=== PATIENT | male | born 1980 | race Two or more races ===

== ENCOUNTER 2017-01-20 | Emergency (ER) | payer SELFPAY ==
[~2017-01-20] VITALS: Ht 170.2 cm; Wt 78.9 kg
[2017-01-20 00:10] VITALS: BP 121/59
[2017-01-20] MEDS ORDERED: PRED50TA PO (00:14)
--- NOTE | 2017-01-20 00:14 | PHYS DOC ---
Adult General Chief Complaint Chief Complaint: ITCHING HPI HPI Patient is a 36 year old male presenting to the emergency department for evaluation of an itchy rash that has been present for the past 3-4 days and is coming and going and is worse in the heat. He denies any new soaps detergents or medications. The only new exposure that he can think of is that he touched some poison brenda. Review of Systems Review of Systems Constitutional: Denies fever or chills [] Integument: + rash, skin lesions [] Physical Exam Physical Exam Constitutional: Well developed, well nourished, no acute distress, non-toxic appearance. [] HENT: Normocephalic, atraumatic, bilateral external ears normal, oropharynx moist, no oral exudates, nose normal. [] Eyes: PERRLA, EOMI, conjunctiva normal, no discharge. [] Cardiovascular:Heart rate regular rhythm, no murmur [] Lungs & Thorax: Bilateral breath sounds clear to auscultation [] Abdomen: Bowel sounds normal, soft, no tenderness, no masses, no pulsatile masses. [] Skin: Slightly raised red rash on his right thigh. Slight rash noted to right forearm and right lower back. EKG EKG [] Radiology/Procedures Radiology/Procedures [] Course & Med Decision Making Course & Med Decision Making Patient with mild allergic reaction to something or could just be a bug bite. It does not appear consistent with poison brenda to me that he is insistent that he touched poison brenda so I will go ahead and treat him with antihistamine and a 10 day course of steroids. Follow with his primary care provider later this week to ensure improvement and come back to the ER sooner with any new or worsening symptoms. Dragon Disclaimer Dragon Disclaimer This electronic medical record was generated, in whole or in part, using a voice recognition dictation system. Departure Departure Impression: Primary Impression: Rash and nonspecific skin eruption Disposition: 01 HOME, SELF-CARE Condition: GOOD Patient Instructions: Poison Brenda Additional Instructions: TAKE 25-50 MG EVERY 4-6 HOURS FOR THE ITCHING. YOU CAN PUT CALAMINE LOTION ON THE RASH. Scripts Prednisone (PREDNISONE) 50 Mg Tablet 1 TAB PO DAILY, #6 TAB Take 1 tab for 4 days and a half tab for 4 days Prov: DORIAN GARVEY DO 01/20/17 DORIAN GARVEY DO Jan 20, 2017:14
[2017-01-20] MEDS ORDERED: diphenhydrAMINE HCL 25 MG CAPSULE PO ONE (00:15)
== END 2017-01-20 00:20 | disposition home or self-care (01) ==
LOC: ER
DX: R21 Rash and other nonspecific skin eruption (principal)
CPT/HCPCS: 99283; Q0163

== ENCOUNTER 2017-02-24 09:21 | Emergency (ER) | payer SELFPAY ==
[~2017-02-24] VITALS: Ht 170.2 cm; Wt 79.4 kg
[~2017-02-24 09:21] MED LIST: PRED50TA PO
[2017-02-24 09:30] VITALS: BP 114/58
[2017-02-24] MEDS ORDERED: TRIA15OI TP (09:51)
--- NOTE | 2017-02-24 09:51 | PHYS DOC ---
Past Medical History Past Medical History: No Pertinent History Past Surgical History: No Surgical History Additional Past Surgical Histo: Abdominal SX to get glass out Alcohol Use: None Drug Use: None Adult General Chief Complaint Chief Complaint: SKIN PROBLEM HPI HPI Patient is a 36 year old male presents to the emergency department with a history of rash on lower legs and feet. Patient was seen her on January 22 and placed on prednisone. Patient states he did not finish the complete medication regimen, he missed 2 dose. Patient denies SOA, he states he continues to have the rash on his feet. and arm. He denies drainage or discharge from the sites. Review of Systems Review of Systems Constitutional: Denies fever or chills [] Eyes: Denies change in visual acuity, redness, or eye pain [] HENT: Denies nasal congestion or sore throat [] Respiratory: Denies cough or shortness of breath [] Cardiovascular: No additional information not addressed in HPI [] GI: Denies abdominal pain, nausea, vomiting, bloody stools or diarrhea [] : Denies dysuria or hematuria [] Musculoskeletal: Denies back pain or joint pain [] Integument: rash denies skin lesions [] Neurologic: Denies headache, focal weakness or sensory changes [] Endocrine: Denies polyuria or polydipsia [] Allergies Allergies Allergies Coded Allergies Type Severity Reaction Last Updated Verified No Known Drug Allergies 01/20/17 No Physical Exam Physical Exam Constitutional: Well developed, well nourished, no acute distress, non-toxic appearance. [] HENT: Normocephalic, atraumatic, bilateral external ears normal, oropharynx moist, no oral exudates, nose normal. [] Eyes: PERRLA, EOMI, conjunctiva normal, no discharge. [] Neck: Normal range of motion, no tenderness, supple, no stridor. [] Cardiovascular:Heart rate regular rhythm, no murmur [] Lungs & Thorax: Bilateral breath sounds clear to auscultation [] Skin: Warm, dry, no erythema, no rash. I do not appreciate a rash on his feet or arm. Skin without red rash, or any raised areas. Back: No tenderness Extremities: No tenderness, no cyanosis, no clubbing, ROM intact, no edema. [] Neurologic: Alert and oriented X 3, normal motor function, normal sensory function, no focal deficits noted. [] Psychologic: Affect normal, judgement normal, mood normal. [] Current Patient Data Vital Signs Vital Signs Date Time Temp Pulse Resp B/P (MAP) Pulse Ox O2 Delivery O2 Flow Rate FiO2 02/24/17 09:30 97.6 66 18 114/58 (76) Room Air 98.0 97.6 EKG EKG [] Radiology/Procedures Radiology/Procedures [] Course & Med Decision Making Course & Med Decision Making Pertinent Labs and Imaging studies reviewed. (See chart for details) Patient will be discharged home in stable condition. Signs and symptoms to return to the emergency department has been provided. Patient will be recommended to use cream as prescribed. Signs and symptoms to return to the emergency department as needed. Followup recommendations have been provided. Patient agrees with discharge instructions, treatment regimen and followup recommendations. [] Dragon Disclaimer Dragon Disclaimer This electronic medical record was generated, in whole or in part, using a voice recognition dictation system. Departure Departure Impression: Primary Impression: Rash Disposition: HOME, SELF-CARE Condition: STABLE Referrals: NO PCP (PCP) Patient Instructions: Rash, [id number] Additional Instructions: Activity as tolerated Medications as prescribed Keep the areas clean dry and cool Followup with your primary care provider in 3-5 days Scripts Triamcinolone Acetonide (TRIAMCINOLONE ACETONIDE 0.1% OINT) 15 Gm Oint...g. 1 ENRIQUE TP BID for WOUND CARE, #1 TUBE MIX WITH EUCERIN DIRECTED BY PHYSICIAN Prov: ZAIN CHAU APRN 02/24/17 ZAIN CHAU APRN Feb 24, 2017 09:51
== END 2017-02-24 10:05 | disposition home or self-care (01) ==
LOC: ER 09:21
DX: R21 Rash and other nonspecific skin eruption (principal)
CPT/HCPCS: 99283

== ENCOUNTER 2018-06-07 09:49 | Emergency (ER) | payer SELFPAY ==
[~2018-06-07] VITALS: Ht 172.7 cm; Wt 79.4 kg
[~2018-06-07 09:49] MED LIST changes: +TRIA15OI TP
[2018-06-07 09:50] VITALS: BP 120/71
[2018-06-07] MEDS ORDERED: AMOX875T PO (10:11)
--- NOTE | 2018-06-07 10:12 | PHYS DOC ---
Past Medical History Past Medical History: No Pertinent History Past Surgical History: No Surgical History Additional Past Surgical Histo: Abdominal SX to get glass out Alcohol Use: None Drug Use: None Adult General Chief Complaint Chief Complaint: EARACHE/EAR PAIN [facility] HPI Patient is a 37 year old male who presents with left ear pain and fullness and sinus congestion x 3 days. Review of Systems Review of Systems Constitutional: Denies fever or chills [] Eyes: Denies change in visual acuity, redness, or eye pain [] HENT: nasal congestion. Denies sore throat. Left ear pain, congestion [] Respiratory: Denies cough or shortness of breath [] Cardiovascular: No additional information not addressed in HPI [] GI: Denies abdominal pain, nausea, vomiting, bloody stools or diarrhea [] : Denies dysuria or hematuria [] Musculoskeletal: Denies back pain or joint pain [] Integument: Denies rash or skin lesions [] Neurologic: Denies headache, focal weakness or sensory changes [] Endocrine: Denies polyuria or polydipsia [] All other systems were reviewed and found to be within normal limits, except as documented in this note. Allergies Allergies Allergies Coded Allergies Type Severity Reaction Last Updated Verified No Known Drug Allergies 01/20/17 No Physical Exam Physical Exam Constitutional: Well developed, well nourished, no acute distress, non-toxic appearance. [] HENT: Normocephalic, atraumatic, bilateral external ears normal, oropharynx moist, no oral exudates, nose normal. Left ear tympanic is purulent fluid filled and reddened. [] Eyes: PERRLA, EOMI, conjunctiva normal, no discharge. [] Neck: Normal range of motion, no tenderness, supple, no stridor. [] Cardiovascular:Heart rate regular rhythm, no murmur [] Lungs & Thorax: Bilateral breath sounds clear to auscultation [] Abdomen: Bowel sounds normal, soft, no tenderness, no masses, no pulsatile masses. [] Skin: Warm, dry, no erythema, no rash. [] Back: No tenderness, no CVA tenderness. [] Extremities: No tenderness, no cyanosis, no clubbing, ROM intact, no edema. [] Neurologic: Alert and oriented X 3, normal motor function, normal sensory function, no focal deficits noted. [] Psychologic: Affect normal, judgement normal, mood normal. [] EKG EKG [] Radiology/Procedures Radiology/Procedures [] Course & Med Decision Making Course & Med Decision Making Patient is a 37 year old male who presents with left ear pain and fullness and sinus congestion x 3 days. Return oriented. Skin pink warm and dry. Afebrile. Vital signs within normal limits. Patient's right ear tympanic is pink and left ear tympanic is purulent fluid filled and reddened. The ear is also tender during examination. Patient rates his discomfort at a 4/10. Throat is pink and without exudates. Patient does have some clear sinus drainage. Patient denies coughing or coughing up any mucus. He denies any shortness of breath or chest pain. No foreign body seen in either ear. Denies any nausea vomiting diarrhea. Patient states he has not been taking any [id number] medications. Patient is told to take Benadryl every 6 hours and to take the antibiotic as prescribed. Patient is told he can follow-up with a primary care provider if needed. Patient is also given a dose of dexamethasone in the ED. Dragon Disclaimer Dragon Disclaimer This electronic medical record was generated, in whole or in part, using a voice recognition dictation system. Departure Departure Impression: Primary Impression: Otitis media Disposition: 01 HOME, SELF-CARE Condition: STABLE Referrals: NO PCP (PCP) Patient Instructions: Otitis Media, Adult Additional Instructions: FOLLOW UP WITH A PRIMARY CARE PROVIDER. TAKE 1 BENADRYL EVERY 6 HOURS. TAKE MEDICATIONS PRESCRIBED. Scripts Amoxicillin (AMOXICILLIN) 875 Mg Tablet 875 MG PO TID for 5 Days, #15 TAB 0 Refills Prov: ZAIN BUTCHER WELDER [employer]EN ARC 06/07/18 Problem Qualifiers Primary Impression: Otitis media Otitis media type: unspecified Chronicity: acute Qualified Codes: H66.90 - Otitis media, unspecified, unspecified ear ZAIN BUTCHER [employer]DER [employer]C Jun 07, 2018 10:12
[2018-06-07] MEDS ORDERED: DEXAMETHASONE 4 MG TABLET PO ONE (10:15)
== END 2018-06-07 10:25 | disposition home or self-care (01) ==
LOC: ER 09:49
DX: H66.91 Otitis media, unspecified, right ear (principal); R09.81 Nasal congestion
CPT/HCPCS: 99283; J8540

== ENCOUNTER 2021-05-07 16:36 | Emergency (ER) | payer SELFPAY ==
[~2021-05-07] VITALS: Ht 170.2 cm; Wt 79.0 kg
[~2021-05-07 16:36] MED LIST changes: +AMOX875T PO
[2021-05-07 21:15] VITALS: BP 124/81
[2021-05-07] MEDS ORDERED: FLUCONAZOLE 100 MG TABLET. PO ONE (21:30)
[2021-05-07] MEDS ORDERED: KETO15CR2 TP (21:34)
--- NOTE | 2021-05-07 21:34 | PHYS DOC ---
Past Medical History Past Medical History: No Pertinent History Past Surgical History: Other Additional Past Surgical Histo: Abdominal SX to get glass out Smoking Status: Never Smoker Alcohol Use: None Drug Use: None General Adult EDM: Chief Complaint: SKIN PROBLEM HPI: HPI: Patient is a 40 year old male who present to ER for evaluation of itchy rash in his groin area that been going on for 1 month. Patient denies any rash on his penis, no penile discharge. Patient denies any fever. Patient denies any nausea vomiting, no abdominal pain. Review of Systems: Review of Systems: Constitutional: Denies fever or chills. [] Eyes: Denies change in visual acuity. [] HENT: Denies nasal congestion or sore throat. [] Respiratory: Denies cough or shortness of breath. [] Cardiovascular: Denies chest pain or edema. [] GI: Denies abdominal pain, nausea, vomiting, bloody stools or diarrhea. [] : Denies dysuria. [] Musculoskeletal: Denies back pain or joint pain. [] Integument: Positive for rash IN HIS groin area Neurologic: Denies headache, focal weakness or sensory changes. [] Endocrine: Denies polyuria or polydipsia. [] Lymphatic: Denies swollen glands. [] Psychiatric: Denies depression or anxiety. [] Heart Score: C/O Chest Pain: N/A Risk Factors: Risk Factors: DM, Current or recent (<one month) smoker, HTN, HLP, family history of CAD, obesity. Risk Scores: Score 0 - 3: 2.5% MACE over next 6 weeks - Discharge Home Score 4 - 6: 20.3% MACE over next 6 weeks - Admit for Clinical Observation Score 7 - 10: 72.7% MACE over next 6 weeks - Early Invasive Strategies Allergies: Allergies: Allergies Coded Allergies Type Severity Reaction Last Updated Verified No Known Drug Allergies 01/20/17 No Physical Exam: PE: Constitutional: Well developed, well nourished, no acute distress, non-toxic appearance. [] Abdomen: Bowel sounds normal, soft, no tenderness, no masses, no pulsatile masses. [] Skin: Warm, dry, scaled lesion or plaque that involves the fold between the scrotum and thigh. Back: No tenderness, no CVA tenderness. [] Extremities: No tenderness, no cyanosis, no clubbing, ROM intact, no edema. [] Neurologic: Alert and oriented X 3, normal motor function, normal sensory function, no focal deficits noted. [] Psychologic: Affect normal, judgement normal, mood normal. [] EKG: EKG: [] Radiology/Procedures: Radiology/Procedures: [] Course & Med Decision Making: Course & Med Decision Making Pertinent Labs and Imaging studies reviewed. (See chart for details) Patient is a 40-year-old male who present to ER due to itchy rash in his groin area been going on for 1 month consistent with jock itch. Patient was given Diflucan p.o. in ER, he was discharged home with prescription for antifungal cream. Dragon Disclaimer: Dragon Disclaimer: This electronic medical record was generated, in whole or in part, using a voice recognition dictation system. Departure Departure Impression: Primary Impression: Tinea cruris Disposition: HOME / SELF CARE / HOMELESS Condition: STABLE Referrals: NO PCP (PCP) Please follow up with [facility] this week. [address], [address] [place] [address] Phone number: [phone] Patient Instructions: Jock Itch Scripts Ketoconazole (KETOCONAZOLE) 15 Gm Cream..g. 1 ENRIQUE TP BID for 30 Days, #60 GM 1 Refill Prov: LUPIS MORRIS DO 05/07/21 LUPIS MORRIS DO May 07, 2021 21:34
== END 2021-05-07 21:51 | disposition home or self-care (01) ==
LOC: ER 16:36
DX: B35.6 Tinea cruris (principal)
CPT/HCPCS: 99283

== ENCOUNTER 2021-06-20 19:04 | Emergency (ER) | payer SELFPAY ==
[~2021-06-20] VITALS: Ht 172.7 cm; Wt 89.0 kg
[~2021-06-20 19:04] MED LIST changes: +KETO15CR2 TP
[2021-06-20 23:30] VITALS: BP 138/80
[2021-06-20] MEDS ORDERED: hydrOXYzine 25 MG TABLET PO STA (23:36)
[2021-06-21] MEDS ORDERED: KETO15CR2 TP (00:12)
[2021-06-21] MEDS ORDERED: HYDR25TA PO (00:12)
--- NOTE | 2021-06-21 00:12 | PHYS DOC ---
Past Medical History Past Medical History: No Pertinent History Past Surgical History: Other Additional Past Surgical Histo: Abdominal SX to get glass out Smoking Status: Never Smoker Alcohol Use: None Drug Use: None General Adult EDM: Chief Complaint: ITCHING HPI: HPI: Patient is a 41 year old male who presents to the ED today complaining of itching in between his thighs and scrotum, symptoms began in March, he states he was seen in the ED in April and was diagnosed with fungal infection and was put on ketoconazole, he states he thinks the symptoms are not improving because now he is itching. Denies any fever. Denies any drainage from the affected areas. He states he has been using the medicine religiously with the exception of a couple days where he missed. He states the itching is intense that he misses work this days. Review of Systems: Review of Systems: Constitutional: Denies fever or chills. [] Reports itching in between the thighs and scrotum : Denies dysuria. [] Musculoskeletal: Denies back pain or joint pain. [] Integument: Denies rash. [] Neurologic: Denies headache, focal weakness or sensory changes. [] Psychiatric: Denies depression or anxiety. [] Heart Score: C/O Chest Pain: N/A Risk Factors: Risk Factors: DM, Current or recent (<one month) smoker, HTN, HLP, family history of CAD, obesity. Risk Scores: Score 0 - 3: 2.5% MACE over next 6 weeks - Discharge Home Score 4 - 6: 20.3% MACE over next 6 weeks - Admit for Clinical Observation Score 7 - 10: 72.7% MACE over next 6 weeks - Early Invasive Strategies Current Medications: Current Medications Medications (Trade) Dose Ordered Sig/Sara Start Time Stop Time Status Last Admin Dose Admin Hydroxyzine HCl (Atarax) 25 mg 1X STAT 06/20/21 23:36 06/20/21 23:38 DC Allergies: Allergies: Allergies Coded Allergies Type Severity Reaction Last Updated Verified No Known Drug Allergies 01/20/17 No Physical Exam: PE: Constitutional: Well developed, well nourished, no acute distress, non-toxic appearance. [] Scrotal exam there is no rash noted in between the thighs or scrotum, there is a pink discoloration on the testicles, patient states is chronic its been there for couple years, it began after using a hair removal product. There is no signs of a fungal infection. There is no drainage, and there is no masses, no warmth Back: No tenderness, no CVA tenderness. [] Extremities: No tenderness, no cyanosis, no clubbing, ROM intact, no edema. [] Neurologic: Alert and oriented X 3, normal motor function, normal sensory function, no focal deficits noted. [] Psychologic: Affect normal, judgement normal, mood normal. [] Current Patient Data: Vital Signs: Vital Signs Date Time Temp Pulse Resp B/P (MAP) Pulse Ox O2 Delivery O2 Flow Rate FiO2 06/20/21 23:10 98.4 69 18 138/88 (105) 100 Room Air 98.4 EKG: EKG: [] Radiology/Procedures: Radiology/Procedures: [] Course & Med Decision Making: Course & Med Decision Making Pertinent Labs and Imaging studies reviewed. (See chart for details) This is a 41-year-old male patient presented to the ED today complaining of a worsening tinea cruris. Patient's physical exam there is no worsening condition. He states is itching more. He still has ketoconazole cream. The area appears to have improved tremendously considering the previous documentation. I recommended he continues using ketoconazole. Given prescription for hydroxyzine for his itching. Anila Disclaimer: Anila Disclaimer: This electronic medical record was generated, in whole or in part, using a voice recognition dictation system. Departure Departure Impression: Primary Impression: Tinea cruris Disposition: HOME / SELF CARE / HOMELESS Condition: STABLE Referrals: NO PCP (PCP) follow up in one week with your doctor Patient Instructions: Jordi Miguel, [id number] Additional Instructions: You were evaluated in the emergency room fungal infection. Please continue using the cream you have. I gave you another prescription for the same medicine. Use it until symptoms have cleared. Use the prescribed itching oral medicine as ordered. Follow-up with your doctor in 1 week Scripts Hydroxyzine Hcl (HYDROXYZINE HCL) 25 Mg Tablet 1 TAB PO TID, #30 TAB Prov: PACHECO CERVANTES APRN 06/21/21 Ketoconazole (KETOCONAZOLE) 15 Gm Cream..g. 1 ENRIQUE TP BID, #60 GM 1 Refill Prov: PACHECO CERVANTES APRN 06/21/21 PACHECO CERVANTES APRN Jun 21, 2021 00:12
== END 2021-06-21 00:40 | disposition home or self-care (01) ==
LOC: ER 19:04
DX: B35.6 Tinea cruris (principal)
CPT/HCPCS: 99283